=== PATIENT | male | born 1995 | race Caucasian/White ===

== ENCOUNTER 2016-08-29 06:51 | Day surgery (SDC) | payer OTHER ==
[2016-08-29] MEDS ORDERED: ceFAZolin 2 GM/50 ML 50 ML IV ONE (07:10)
[2016-08-29] MEDS ORDERED: ACETAMINOPHEN 1,000 MG/100 ML 100 ML IV ONE (07:10)
[2016-08-29] MEDS ORDERED: LACTATED RINGERS 1,000 ML IV ONE ×2 (07:12→12:41)
[2016-08-29] MEDS ORDERED: ONDANSETRON 4 MG/2 ML VIAL IVP ONE (10:20)
[2016-08-29] MEDS ORDERED: PROPOFOL 200 MG/20 ML VIAL IVP ONE (10:20)
[2016-08-29] MEDS ORDERED: DEXAMETHASONE 4 MG/ML VIAL IVP ONE (10:20)
[2016-08-29] MEDS ORDERED: LIDOCAINE-PF 4% 5 ML AMP SUBQ ONE (10:20)
[2016-08-29] MEDS ORDERED: MIDAZOLAM 2 MG/2 ML VIAL IVP ONE (10:20)
[2016-08-29] MEDS ORDERED: fentaNYL 100 MCG/2 ML VIAL IVP ONE (10:20)
[2016-08-29] MEDS ORDERED: BUPIVACAINE 0.25% PF 30 ML VIAL SUBQ ONE ×2 (10:26→11:45)
[2016-08-29] MEDS: HYDROmorphone 1 MG/ML SYRINGE ONE ×3 (12:26→12:33)
[2016-08-29] MEDS ORDERED: fentaNYL 100 MCG/2 ML VIAL ONE (12:37)
[2016-08-29] MEDS ORDERED: oxyCOD/ACETAMIN 5 MG/325 MG TABLET PO ONE (13:34)
== END 2016-08-29 06:52 | disposition home or self-care (01) ==
PROC: 0PSK04Z Reposition Right Ulna with Internal Fixation Device, Open Approach (ICD-10-PCS; principal; 2016-08-29 09:10)
DX: S52.201A Unspecified fracture of shaft of right ulna, initial encounter for closed fracture (principal); W22.09XA Striking against other stationary object, initial encounter; Y93.23 Activity, snow (alpine) (downhill) skiing, snowboarding, sledding, tobogganing and snow tubing
CPT/HCPCS: 25545; 73090; 73100; A9270; C1713; J0131; J0690; J1170; J7120